=== PATIENT | female | born 1950 | race Caucasian/White ===

== ENCOUNTER 2016-12-23 14:10 | Inpatient (IN) | payer OTHER, MEDICARE ==
--- NOTE | 2017-02-21 09:16 | HP ---
DATE OF CLINIC: 02/12/2017 JENARO BOB : 1950 PLANNED PROCEDURE: Left Total Hip Arthroplasty DATE OF PROCEDURE: February 24, 2017 SURGEON: Estevan Gauthier M.D. PCP: Dr. Amaury Gutiérrez HISTORY OF PRESENT ILLNESS Jenaro Bob is a 66 year old female. * Medication list reviewed with patient allergy list reviewed with patient. * Tried NSAIDS * Has not tried Physical Therapy * Has not tried Injections Ms. Bob is in today pre-operatively for her upcoming left total hip arthroplasty with Dr. Gauthier on 02/24/17. Patient presents in good spirits and is ready to proceed. She denies recent illness, change in health, or prior surgical complications. Her recent consult follows: Ms. Bob is an established patient of the office. She is a pleasant 65-year-old female well known to us for a right total hip arthroplasty completed on August 01, 2014. We not seen the patient yet in postoperative recheck, but she states that she is doing very well with her progress with the right hip. She has no complaint of pain or instability. She is scheduled today for evaluation of her left hip. The patient noted that over the past three months she has had progressively more pain and discomfort in the groin that actually has some radiation to the posterior thigh, but also affects the lateral aspect of her left knee. She was concerned that this may be happening as a result of shifting in her vehicle. So she changed vehicles and had no change in her pain. The pain is primarily with exertive activity such as shifting as well as weight-bearing. Her job is sedentary but when she at start up from her desk, she will experience a similar kind of a pain, and she is now also having some night discomfort. The patient has had no evidence of this prior to this point in time, based on the prior radiographs she has had some moderate degenerative change, historically minimal back discomfort. In regard to the knee she has no complaints of weight bearing pain with the knee. She had not had any provocative incidents to strain her knee. She denies any mechanical symptoms or loss of motion. She is not had any swelling. The patient also denies any recent change in her baseline status of health or illness. CURRENT MEDICATION * HydroCHLOROthiazide 12.5 MG Capsule 1 once a day 0 days, 0 refills * Lisinopril 5 MG Tablet 1 once a day 0 days, 0 refills * TraMADol HCl 50 MG Tablet 1 po q 6 hours prn pain, 5 days, 0 refills PAST MEDICAL/SURGICAL HISTORY Reported: Medical: Hypertension. Surgical / Procedural: Replacement of a hip Right hip replacement 08/01/[address]David Gauthier and Breast surgery Reduction 2001. SOCIAL HISTORY Behavioral: Never smoked. Smoking status: Never smoker. 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 ALLERGIES * Molds FAMILY HISTORY Father at age 59 2 children living REVIEW OF SYSTEMS Systemic: No fever and no recent weight change. Head: No head symptoms. Cardiovascular: Cardiovascular symptoms HTN. Pulmonary: No pulmonary symptoms. Gastrointestinal: No gastrointestinal symptoms. Psychological: No psychological symptoms. Skin: No skin lesions and no rash. PHYSICAL FINDINGS * Vitals taken 02/12/2017 03:12 pm BP-Sitting L 147/91 mmHg 100 - 120/56 - 80 BP Cuff Size Regular Pulse Rate-Sitting 92 bpm 50 - 100 Temp-Oral 97.3 F 96 - 101 Height 64 in 59 - 68 Weight 219 lbs 96 - 178 Body Mass Index 37.6 kg/m2 Body Surface Area 2.03 m2 Pain Level 4 Ears, Nose, Throat: * ENT: normal. Lungs: * Clear to auscultation. Cardiovascular: Heart Rate and Rhythm: * Normal. Abdomen: * Normal. Neurological: Motor: * Dominant Hand = Left Hand. This is a well-developed, well-nourished obese 65-year-old female presenting to the office today in no acute distress. She is alert and oriented times four with a normal mood and affect. EXAM OF THE LOWER EXTREMITIES: The patient ambulates today with a cautious moderately antalgic gait favoring the left side. She has a mild Trendelenburg. She has good balance in stance. Examination of the left hip itself reveals the skin to be intact without wound, rash, lesion or discoloration. There is no evidence of swelling. The patient was non-tender about the pelvic girdle on palpation. A log roll with her supine did demonstrate groin pain. Active range of motion was as follows with her supine: Her hip flexion was to 90 degrees prior to be limited by pain, abduction to 45 degrees, both of these motions were improved passively, her passive limit in flexion was to 110 with significant groin pain, abduction to 50 degrees, internal rotation to neutral with significant groin pain, external rotation to 45, adducting across midline re-created groin pain. Passive SLR was to 75 degrees prior to hamstring tightness. Active SLR to 45 degrees with groin pain present. Hip strength was 5/5 in all planes. Active range of motion of the left knee was 0 to 125 without discomfort. The knee itself the skin revealed no wounds, rash, lesions or discoloration. No effusion was present. The cruciate and collateral ligamentous exam was intact. The patella was tracking well. There was no crepitation or apprehension sign. The knee strength was 5/5 and symmetric. There were no focal points of tenderness on palpation of the previous pain that she felt laterally with hip motion suggesting some referred pain. The thigh and calf were soft and non-tender; ankle motion was full with 5/5 strength. The distal motor, sensory and vascular function was intact with palpable dorsalis and posterior tibialis pulses. RADIOGRAPHS: An AP of the pelvis as well as AP and lateral of the left hip were available today for review. There are also four views of the left knee available from [facility] for review. The left knee films demonstrate no acute osseous abnormalities, minimal tri-compartmental degenerative change is seen in a symmetric fashion. The patella is lining up well. Hip films in the pelvis view there is first of all no acute demonstrated osseous abnormalities; single view of the pelvis suggests a right total hip arthroplasty in good position without evidence of loosening or excessive wear. AP and lateral of the left hip demonstrate moderately advanced degenerative change with some flattening of the femoral head as well as subchondral sclerosis and lateral spurring of the acetabulum as well as mild spurring of the femoral head. TESTS * Test: URINALYSIS Report Date: 02/12/2017 GLUCOSE NEGATIVE PH,URINE 7.0 SPEC. GRAVITY 1.010 KETONE NEGATIVE NITRITE NEGATIVE BLOOD NEGATIVE BILIRUBIN NEGATIVE APPEARANCE CLEAR PROTEIN NEGATIVE COLOR YELLOW LEUK ESTERASE NEGATIVE UROBILINOGEN NORMAL * Test: CBC WITH DIFF Report Date: 02/12/2017 WBC 7.1 10*3/mL BASOPHIL 0.3 % RBC 5.19 10*6/uL NEUTROPHILS 52.7 % MCH 28.3 pg MCHC 32.9 g/dL Low RDW 13.2 % MCV 86.1 fL PLATELET COUNT 239 10*3/mL IMM NEUT % 0.3 % IMM NEUT # 0.0 10*3/mL MONOCYTES 5.9 % EOSINOPHIL 1.7 % HCT 44.7 % HGB 14.7 g/L LYMPHOCYTE 39.1 % ANC 3.7 10*3/mL * Test: PROTHROMBIN TIME Report Date: 02/12/2017 PROTIME 9.5 s INR 0.90 * Test: PARTIAL THROMBOPLASTIN TIME Report Date: 02/12/2017 APTT 22.8 s Low * Test: COMPREHENSIVE METABOLIC PANEL Report Date: 02/12/2017 ALT/SGPT 16 U/L ALBUMIN 4.1 g/dL ALB/GLOB RATIO 1.9 BUN 15 mg/dL BUN/CREAT RATIO 19 CALCIUM 9.6 mg/dL GLUCOSE 145 mg/dL High CREATININE 0.8 mg/dL SODIUM 140 meq/L POTASSIUM 4.0 meq/L CHLORIDE 101 meq/L CARBON DIOXIDE 29 meq/L ANION GAP 14 meq/L TOT PROTEIN 6.3 g/dL Low GLOBULIN 2.2 g/dL Low BILI,TOTAL 0.4 mg/dL AST/SGOT 15 U/L ALK PHOSPHATASE 78 U/L GFR 72 ASSESSMENT * Localized primary osteoarthritis of the left hip advanced * Localized primary osteoarthritis of the left knee mild Intact right hip prosthesis. THERAPY * Patient fall risk screen negative. * Patient eligible for fall risk assessment. * Patient received fall risk assessment. COUNSELING/EDUCATION * Patient education about orthopedic activities PLAN * OTHER OxyCODONE HCl 5 MG TABS, 1-2 po q 4-6 hours for break thru pain if needed-TO BE USED FOR AFTER SURGERY, 5 days, 0 refills TraMADol HCl 50 MG TABS, 1 po q 6 hours prn pain-TO BE USED FOR AFTER SURGERY, 5 days, 0 refills * Total hip replacement -Left Discussed with patient in detail the limitations, expectations as well as risks and possible complications of surgery including, but not limited to wound problems or infection, neurovascular injury, continued hip pain or dysfunction, postop instability including the possibility of dislocation and/or postop leg length discrepancy, and the possibility of prosthetic wear or failure over time that may require additional operative or non-operative treatment. Patient also realizes the perioperative risks including risks associated with anesthesia and would like to proceed. A full PAR conference was held, questions and concerns addressed and informed consent was obtained. Patient will be sent from my office for completion of the preoperative workup. Patient will use enteric coated aspirin postoperatively for DVT prophylaxis. Patient would like to perform their postop PT at [facility] with left total hip arthroplasty protocol WBAT, posterior hip precautions. CARE TEAM Amaury Gutiérrez, DO Family Practice CC: Amaury Gutiérrez, DO Family Practice Fatemeh PT Eddie RS/sg
[2017-02-24] MEDS ORDERED: CELECOXIB 200 MG CAPSULE PO ONE (08:30)
[2017-02-24] MEDS ORDERED: BUPIVACAINE 0.25% (MDV) 20 ML in SODIUM CHLORIDE 0.9% FLUSH 20 ML IF PRN (08:30)
[2017-02-24] MEDS ORDERED: CEFAZOLIN SODIUM 2 GRAM PREMIX 100 ML IV PRN (08:30)
[2017-02-24] MEDS ORDERED: TRAMADOL HCL 50 MG TABLET PO ONE (08:30)
[2017-02-24] MEDS ORDERED: TRANEXAMIC ACID 1,000 MG in SODIUM CHLORIDE 0.9% 100 ML IV PRN (08:30)
[2017-02-24] MEDS ORDERED: GABAPENTIN 600 MG TABLET PO ONE (08:30)
[2017-02-24] MEDS ORDERED: POLYMYXIN B SULFATE 500,000 UNITS, BACITRACIN 25,000 UNITS in SODIUM CHLORIDE 3 L IRRIG... IR PRN (08:30)
[2017-02-24] MEDS ORDERED: ONDANSETRON 4 MG/2ML 2 ML VIAL IV ONE (08:30)
[2017-02-24] MEDS ORDERED: BUPIVACAINE 0.25% (MDV) 24 ML, MORPHINE SULFATE 8 MG, EPINEPHRINE 0.3 MG in SODIUM CHLO... IF PRN (08:30)
[2017-02-24] MEDS ORDERED: FAMOTIDINE 20 MG TABLET PO ONE (08:30)
[2017-02-24] MEDS ORDERED: OXYCODONE HCL 10 MG TAB.SR PO ONE ×2 (08:30→09:14)
[2017-02-24] MEDS ORDERED: CLONIDINE HCL 0.1 MG/24 HR (7 DAY PATCH) TD SCH (08:30)
[2017-02-24] MEDS ORDERED: LACTATED RINGERS 1,000 ML ONE ×3 (09:03→14:24)
[2017-02-24] MEDS ORDERED: IV START KIT ONE ×2 (09:04→09:14)
[2017-02-24] MEDS ORDERED: ONDANSETRON 4 MG/2ML 2 ML VIAL ONE (09:14)
[2017-02-24] MEDS ORDERED: TRAMADOL HCL 50 MG TABLET ONE (09:14)
[2017-02-24] MEDS ORDERED: GABAPENTIN 600 MG TABLET ONE (09:15)
[2017-02-24] MEDS ORDERED: CELECOXIB 200 MG CAPSULE ONE (09:15)
[2017-02-24] MEDS ORDERED: CLONIDINE HCL 0.1 MG/24 HR (7 DAY PATCH) TD ONE (09:15)
[2017-02-24] MEDS ORDERED: FAMOTIDINE 20 MG TABLET ONE (09:15)
[2017-02-24] MEDS ORDERED: MIDAZOLAM HCL 5 MG/5 ML VIAL ONE (10:23)
[2017-02-24] MEDS ORDERED: FENTANYL 100 MCG/2 ML VIAL ONE (10:23)
[2017-02-24] MEDS ORDERED: SPINAL PROCEDURAL TRAY 1 EACH ONE (10:55)
[2017-02-24] MEDS ORDERED: BUPIVACAINE 0.75% SPINAL AMPUL 2 ML ONE (10:55)
[2017-02-24] MEDS ORDERED: PROPOFOL 40 ML IV ONE (11:46)
[2017-02-24] MEDS ORDERED: PROPOFOL 20 ML IV ONE ×2 (12:16)
[2017-02-24] MEDS ORDERED: PROMETHAZINE HCL 25 MG/ML VIAL IM PRN (13:39)
[2017-02-24] MEDS ORDERED: NALOXONE HCL 0.4 MG/ML VIAL IV PRN (13:39)
[2017-02-24] MEDS ORDERED: ATROPINE SULFATE 0.4 MG/1 ML VIAL IV PRN (13:39)
[2017-02-24] MEDS ORDERED: ONDANSETRON 4 MG/2ML 2 ML VIAL IV PRN ×2 (13:39→14:42)
[2017-02-24] MEDS: FENTANYL 100 MCG/2 ML VIAL IV PRN ×2 (13:47→13:55)
--- NOTE | 2017-02-24 13:51 | PCMBPN ---
Brief Post Op Note: Date of Procedure: 02/24/17 Preoperative Diagnosis: DJD left hip Postoperative Diagnosis: same Procedure: left KATTY Surgeon: Estevan Gauthier MD Assist: Talon (NAHUN) Anesthesia: spinal (Bahrke) Condition: stable to PAR Complications: none IV Fluids: 1000 mLs of LR Urine Output: 50 mLs Estimated Blood Loss: 100mLs Tourniquet Time: [N/A] Specimens: [N/A] Implants: Trilock Drains: [N/A]
[2017-02-24] MEDS ORDERED: HYDROMORPHONE HCL 1 MG/ML SYRINGE ONE ×2 (14:08→14:23)
[2017-02-24] MEDS: HYDROMORPHONE HCL 1 MG/ML SYRINGE IV PRN ×3 (14:09→14:27)
[2017-02-24] MEDS ORDERED: CALCIUM CARBONATE 500 MG TAB.CHEW PO PRN (14:42)
[2017-02-24] MEDS ORDERED: TEMAZEPAM 15 MG CAPSULE PO PRN (14:42)
[2017-02-24] MEDS ORDERED: HYDROMORPHONE HCL 0.5 MG/0.5 ML SYRINGE IV PRN (14:42)
[2017-02-24 15:22] VITALS: BMI 38.7
--- NOTE | 2017-02-24 15:37 | RAD ---
PELVIS HISTORY: Postop left KATTY COMPARISONS: Left hip series 09/12/2016 FINDINGS: Single view of the pelvis demonstrates postsurgical change from left KATTY. 2 screws transfix the acetabular component. Hardware is intact without signs of failure or loosening given the single projection. No fracture or dislocation. Subcutaneous gas is noted compatible with the patient's known postoperative state. Right total hip arthroplasty hardware is unchanged from prior study. IMPRESSION: Satisfactory postoperative exam.
[2017-02-24] MEDS ORDERED: HYDROCHLOROTHIAZIDE 12.5 MG CAP PO SCH (15:43)
[2017-02-24] MEDS ORDERED: LISINOPRIL 5 MG TABLET PO SCH (15:44)
[2017-02-24] MEDS: LACTATED RINGERS 1,000 ML IV SCH (17:35)
[2017-02-24] MEDS ORDERED: PUMP TUBING ONE (17:55)
[2017-02-24] MEDS: D5 1/2NS with 20 mEq KCL 1,000 ML IV SCH (18:01)
[2017-02-24] MEDS: ACETAMINOPHEN 500 MG TABLET PO SCH (18:02)
[2017-02-24] MEDS: KETOROLAC TROMETHAMINE 30 MG/ML 1 ML VIAL IV PRN (20:03)
[2017-02-24] MEDS: DOCUSATE SODIUM 100 MG CAPSULE PO SCH (20:04)
[2017-02-24] MEDS: CEFAZOLIN SODIUM 1 GRAM PREMIX 1 G in Premix (D5W) 50 ml 1 EACH IV SCH (20:04)
[2017-02-24] MEDS ORDERED: TRAMADOL HCL 50 MG TABLET PO PRN (21:00)
[2017-02-24] MEDS: ASCORBIC ACID 500 MG TABLET PO SCH (22:42)
[2017-02-25] MEDS: LACTATED RINGERS 1,000 ML IV SCH (01:01)
[2017-02-25] MEDS: ACETAMINOPHEN 500 MG TABLET PO SCH ×4 (01:02→18:44)
[2017-02-25] MEDS: KETOROLAC TROMETHAMINE 30 MG/ML 1 ML VIAL IV PRN ×2 (01:53→09:28)
[2017-02-25] MEDS: D5 1/2NS with 20 mEq KCL 1,000 ML IV SCH ×2 (01:53→09:13)
[2017-02-25] MEDS: CEFAZOLIN SODIUM 1 GRAM PREMIX 1 G in Premix (D5W) 50 ml 1 EACH IV SCH (04:32)
[2017-02-25 06:05] LABS: HEMATOCRIT 39.2 % (37.0-47.0); HEMOGLOBIN 12.5 gm/l (12.0-16.0); MEAN CELL VOLUME 88.5 fl (81.0-99.0); MEAN CORPUSCULAR HEMOGLOBIN 28.2 pg (27.0-31.0); MEAN CORPUSCULAR HGB CONC 31.9 g/dl (33.0-37.0); RED CELL DISTRIBUTION WIDTH 13.3 % (11.5-14.5)
[2017-02-25 06:30] LABS: CALCIUM 8.3 mg/dL (8.6-10.3)
--- NOTE | 2017-02-25 08:22 | CONS ---
Jenaro Ibarra [id number] DATE OF ADMISSION: 02/24/2017 REQUESTING PHYSICIAN: Dr. Estevan Gauthier. PRIMARY CARE PHYSICIAN: Dr. Amaury Hugo. CHIEF COMPLAINT: Assist with medical management in a patient with status post left total hip arthroplasty. HISTORY OF PRESENT ILLNESS: The patient is a 66-year-old female who is postoperative day zero status post left total hip arthroplasty 02/24/2017. She reports doing well. No dyspnea. No chest pain. She did have some nausea and did have vomiting earlier today, but is now feeling fine with no complaints. She notes that she did not have any nausea or vomiting the previous time, but attributes this to eating some fruit this time. Her pain is otherwise well controlled and she was able to do some bed exercises with physical therapy earlier. PAST MEDICAL HISTORY: Remarkable for borderline hypertension. She has continued to take hydrochlorothiazide and lisinopril although, states her doctors offered the chance to stop it, they elected to continue due to renal protective effects. She has a history of hyperglycemia, but is not on any medicines just diet control. She is left handed. PAST SURGICAL HISTORY: Remarkable for reduction mammoplasty 2001, hysterectomy, deviated septoplasty, and a right hip replacement 08/01/2014 which she was very pleased with. ALLERGIES: LISTED MOLDS. MEDICATIONS: 1. Hydrochlorothiazide 12.5 mg daily. 2. Lisinopril 5 mg daily. 3. Tramadol 50 mg by mouth every 6 hours as needed. 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 She is . 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 No smoking. Reports alcohol at 2 drinks per year. She has two kids and her has two kids from a previous relationships. She has neighborhood cats and her house was recently adopted by a cat. FAMILY HISTORY: Father at 59 killed in a train accident. Mom is 89 and is generally doing well. REVIEW OF SYSTEMS: Eyes, ears, nose, and throat have been okay. Mouth is somewhat dry. Nose is chronically clogged up on the right. Breathing is fine. No heart complaints. No stomach complaints. No nausea at this time. No arm complaints. No urinary complaints. Pain is relatively well controlled. Skin has been okay. She has not stood up yet, but did do the bed exercises before. PHYSICAL EXAMINATION: GENERAL: Pleasant nontoxic female who is sleeping, but awakes and responds appropriately. VITAL SIGNS: Pulse 69, blood pressure 133/74, 99% saturation on 2 liters. HEENT: Head is normocephalic, atraumatic. Eyes are unremarkable. Ears are normal bilaterally. Minimal injection on the left tympanic membrane. Nose is normal. The patient does report some decreased air flow on the right nostril chronically. Oropharynx is grossly unremarkable. Dentition is good. NECK: Supple without masses or adenopathy. LUNGS: Clear to auscultation bilaterally. HEART: Slightly distant, but regular rate and rhythm. ABDOMEN: Soft, nontender, nondistended. Bowel sounds are normal. EXTREMITIES: Arms are unremarkable. Pulses are good bilaterally. Perfusion is good. Left hip with dressings which is clean, dry, and intact. Lower extremities with compression devices and SAMAN hose bilaterally. She is able to wiggle the toes on both feet and reports sensation is good. She is alert, oriented, and appropriate. GENITOURINARY: Deferred. NEUROLOGICAL: No neurologic deficits noted. PREOPERATIVE LABS: Showed a white count of 7.1, hemoglobin 14.7, platelets 239. Sodium 140, potassium 4.0, chloride 101, CO2 29, BUN 15, creatinine 0.8, glucose 45, calcium 7.6. LFT's are normal. Urinalysis normal. Postoperative left total hip arthroplasty was satisfactory postoperative appearance. DIAGNOSTICS: EKG normal sinus rhythm. ASSESSMENT AND PLAN: 1. Postoperative day zero status post left total hip arthroplasty. Appreciate orthopedic, therapeutic, and nursing care. She appears to be feeling very well after having nausea and vomiting earlier. 2. History of borderline hypertension. Anticipate just holding her medicines while she is here. 3. History of hyperglycemia. Anticipate capillary blood glucoses, but last time did not require any insulin supplementation. 4. Venous thrombosis prophylaxis. Anticipate use of aspirin. Thank you for this consultation. We will follow with you. JOB: [id number] CC: Dr. Amaury Gauthier
[2017-02-25] MEDS ORDERED: REMOVE PATCH 1 EACH UNIT TD SCH (08:30)
[2017-02-25] MEDS ORDERED: REMOVE PATCH 1 EACH UNIT TD ONE (09:18)
[2017-02-25] MEDS: CELECOXIB 200 MG CAPSULE PO SCH (09:25)
[2017-02-25] MEDS: DOCUSATE SODIUM 100 MG CAPSULE PO SCH ×2 (09:25→21:23)
[2017-02-25] MEDS: MULTIVITAMINS 1 TAB TABLET PO SCH (09:26)
[2017-02-25] MEDS: ASCORBIC ACID 500 MG TABLET PO SCH ×2 (09:26→21:23)
[2017-02-25] MEDS: ASPIRIN (ENTERIC COATED) 325 MG TABLET.EC PO SCH (09:26)
[2017-02-25] MEDS: OXYCODONE HCL 5 MG TABLET PO PRN ×4 (09:26→21:23)
--- NOTE | 2017-02-25 10:51 | PDOC43 ---
- Subjective Findings: Pt seen this morning up and ready to get out of bed. Pain is under control. She did have n/v last evening but is hungry this am and is ready t eat. Subjective: Reports Pain Tolerable, Reports Nausea, Denies Chest Pain, Denies Shortness of Breath, Denies Vomiting, Denies Fever - Objective Vital Signs Temperature 97.1 F 02/25/17 05:25 Pulse Rate 82 02/25/17 05:25 Respiratory Rate 18 02/25/17 05:25 Blood Pressure 125/67 02/25/17 05:25 O2 Saturation by Pulse Oximetry 100 02/25/17 05:25 Oxygen Delivery Method Nasal Cannula Oxygen Flow Rate 1.5 Laboratory 02/25/17 05:30 02/25/17 05:30 02/25/17 02/24/17 05:30 23:31 MCHC 31.9 L POC Capillary Glucose 186 H Calcium 8.3 L Active Medication Orders Category Date Time Status Acetaminophen [Tylenol] Med 02/24/17 18:00 Active 1,000 mg PO Q6H Ascorbic Acid [Vitamin C] Med 02/24/17 21:00 Active 500 mg PO BID Aspirin (Enteric Coated) [Ecotrin] Med 02/25/17 09:00 Active 325 mg PO DAILY Atropine Sulfate Med 02/24/17 13:39 Active 0.2 mg IV X1 PRN Bisacodyl [Dulcolax] Med 02/27/17 13:40 Active 10 mg TN DAILY PRN Calcium Carbonate [Tums] Med 02/24/17 14:42 Active 1,000 - 2,000 mg PO Q2H PRN Celecoxib [Celebrex] Med 02/25/17 09:00 Active 200 mg PO DAILY D5 1/2NS with 20 mEq KCL [D51/2NS with 20 mEq KCL] 1, Med 02/24/17 14:42 Active 000 ml IV 125 mls/hr Docusate Sodium [Colace] Med 02/24/17 21:00 Active 100 mg PO BID Fentanyl Med 02/24/17 13:39 Active 50 mcg IV Q5M PRN Hydrochlorothiazide Med 02/24/17 15:43 Hold 12.5 mg PO DAILY Hydromorphone HCl [Dilaudid] Med 02/24/17 14:42 Active 0.5 mg IV Q1H PRN Hydromorphone HCl [Dilaudid] Med 02/24/17 13:39 Active 0.5 mg IV Q5M PRN Ketorolac Tromethamine [Toradol] Med 02/24/17 14:42 Active 30 mg IV Q6H PRN Lisinopril [Prinivil] Med 02/24/17 15:44 Hold 5 mg PO DAILY Magnesium Hydroxide [Milk of Magnesia] Med 02/25/17 13:40 Active 30 ml PO DAILY PRN Multivitamins [One-A-Day] Med 02/25/17 09:00 Active 1 tab PO DAILY Naloxone HCl [Narcan] Med 02/24/17 13:39 Active 0.2 mg IV X1 PRN Ondansetron 4 mg/2ml Vial [Zofran] Med 02/24/17 14:42 Active 4 - 6 mg IV Q6H PRN Ondansetron 4 mg/2ml Vial [Zofran] Med 02/24/17 13:39 Active 4 mg IV X1 PRN Oxycodone HCl [Roxicodone] Med 02/24/17 14:42 Active 5 - 10 mg PO Q4H PRN Promethazine HCl [Phenergan] Med 02/24/17 13:39 Active 12.5 - 25 mg IM X1 PRN Sodium Chloride 0.9% Flush [Normal Saline 10ml Flush] Med 02/24/17 14:42 Active 10 - 50 ml IV PRN PRN Sodium Chloride 0.9% Flush [Normal Saline 10ml Flush] Med 02/25/17 09:00 Active 10 ml IV Q8HR Temazepam [Restoril] Med 02/24/17 14:42 Active 15 mg PO BEDTIME PRN Tramadol HCl [Ultram] Med 02/24/17 21:00 Active 50 mg PO Q6H PRN Intake and Output 02/23/17 02/24/17 02/25/17 23:59 23:59 23:59 Intake Total 2080 1355 Output Total 750 1800 Balance 1330 -445 General: Afebrile HEENT: Atraumatic Lungs: Normal Air Movement Abdomen: Non-Distended Skin: Normal Color Neurological: Alert Psych/Mental Status: Normal Affect - Left Lower Extremity Motor: Extensor Hallucis Longus: 5/5, Tibialis Anterior: 5/5, Gastrocnemius: 5/5 , Peroneals: 5/5, Quadriceps: 3/5 Gross Sensation to Light Touch: Present: Deep Peroneal Nerve, Superficial Peroneal Nerve Capillary Refill: < 3 Seconds Motion: Calf soft NT Gentle Rom knee and hip without pain Min assist with SLR - Problems (1) Status post left hip replacement Status: AcuteAssessment/Plan: Pod #1 1. Physical Therapy: mobilize with PT/OT. Encouraged bed exercises 2. Pain Control:Per protocol 3. DVT Prophylaxis: ASA, foot pumps and mobility 4. Disposition:Doing fine at this point 5. Medical Issues:Management per hospitalist appreciate the care and consult.
--- NOTE | 2017-02-25 11:56 | PDOC43 ---
- Subjective Chief Complaint: s/p L KATTY Patient reports feeling well, breathing good, stomach good, ate fine, worked with PT, pain control good. No c/o this am. - Objective Vital Signs Temperature 97.1 F 02/25/17 05:25 Pulse Rate 82 02/25/17 05:25 Respiratory Rate 18 02/25/17 09:00 Blood Pressure 125/67 02/25/17 05:25 O2 Saturation by Pulse Oximetry 100 02/25/17 05:25 Oxygen Delivery Method Nasal Cannula Oxygen Flow Rate 1.5 Intake and Output 02/23/17 02/24/17 02/25/17 23:59 23:59 23:59 Intake Total 2080 1355 Output Total 750 2300 Balance 1330 -945 General: Alert, Cooperative, No Acute Distress HEENT: Atraumatic Lungs: Clear to Auscultation Bilaterally Cardiovascular: Regular Rate and Rhythm Abdomen: Soft, Normal Bowel Sounds, Non-Distended Extremities: No Edema Skin: Normal Color Neurological: Normal Speech Psych/Mental Status: Normal Affect (appears to be feeling quite good.) Laboratory 02/25/17 05:30 02/25/17 05:30 02/25/17 02/24/17 05:30 23:31 MCHC 31.9 L POC Capillary Glucose 186 H Calcium 8.3 L Current Medications: Current meds reviewed in EMR. Active Medications Acetaminophen (Tylenol) 1,000 mg PO Q6H [facility] Last Admin: 02/25/17 06:10 Dose: Not Given Ascorbic Acid (Vitamin C) 500 mg PO BID [facility] Last Admin: 02/25/17 09:26 Dose: 500 mg Aspirin (Ecotrin) 325 mg PO DAILY [facility] Last Admin: 02/25/17 09:26 Dose: 325 mg Atropine Sulfate (Atropine Sulfate) 0.2 mg IV X1 PRN PRN Reason: HR <50/minute and unstable BP Bisacodyl (Dulcolax) 10 mg UT DAILY PRN PRN Reason: If no BM by POD#3 Calcium Carbonate/Glycine (Tums) 1,000 - 2,000 mg PO Q2H PRN PRN Reason: Heartburn/Indigestion Celecoxib (Celebrex) 200 mg PO DAILY [facility] Last Admin: 02/25/17 09:25 Dose: 200 mg Docusate Sodium (Colace) 100 mg PO BID [facility] Last Admin: 02/25/17 09:25 Dose: 100 mg Fentanyl Citrate (Fentanyl) 50 mcg IV Q5M PRN PRN Reason: Pain Last Admin: 02/24/17 13:55 Dose: 50 mcg Hydrochlorothiazide (Hydrochlorothiazide) 12.5 mg PO DAILY [facility] Last Admin: 02/24/17 17:34 Dose: Not Given Hydromorphone HCl (Dilaudid) 0.5 mg IV Q5M PRN PRN Reason: Pain Last Admin: 02/24/17 14:27 Dose: 0.5 mg Hydromorphone HCl (Dilaudid) 0.5 mg IV Q1H PRN PRN Reason: Severe/Breakthrough Pain Ketorolac Tromethamine (Toradol) 30 mg IV Q6H PRN PRN Reason: Pain (Moderate/Severe) Stop: 02/25/17 13:40 Last Admin: 02/25/17 09:28 Dose: 30 mg Lisinopril (Prinivil) 5 mg PO DAILY [facility] Last Admin: 02/24/17 17:34 Dose: Not Given Magnesium Hydroxide (Milk Of Magnesia) 30 ml PO DAILY PRN PRN Reason: If no BM by evening of POD#1 Multivitamins (One-A-Day) 1 tab PO DAILY [facility] Last Admin: 02/25/17 09:26 Dose: 1 tab Naloxone HCl (Narcan) 0.2 mg IV X1 PRN PRN Reason: Respiratory Rate <8/minute Ondansetron HCl (Zofran) 4 mg IV X1 PRN PRN Reason: Nausea/Vomiting Last Admin: 02/24/17 13:52 Dose: 4 mg Ondansetron HCl (Zofran) 4 - 6 mg IV Q6H PRN PRN Reason: Nausea/Vomiting Last Admin: 02/24/17 15:33 Dose: 4 mg Oxycodone HCl (Roxicodone) 5 - 10 mg PO Q4H PRN PRN Reason: Pain (Moderate) Last Admin: 02/25/17 09:26 Dose: 5 mg Promethazine HCl (Phenergan) 12.5 - 25 mg IM X1 PRN PRN Reason: Nausea/Vomiting Sodium Chloride (Normal Saline 10ml Flush) 10 - 50 ml IV PRN PRN PRN Reason: IV Flush Sodium Chloride (Normal Saline 10ml Flush) 10 ml IV Q8HR [facility] Last Admin: 02/25/17 09:27 Dose: 10 ml Temazepam (Restoril) 15 mg PO BEDTIME PRN PRN Reason: Insomnia Tramadol HCl (Ultram) 50 mg PO Q6H PRN PRN Reason: Pain (Mild) - Problems: Assessment/Plan (1) Status post left hip replacement Status: AcuteAssessment/Plan: Appreciate specialty care. Pt reports doing well. (2) Benign hypertension Status: ChronicAssessment/Plan: BP doing well, holding meds (3) History of elevated glucose Status: ChronicAssessment/Plan: Pt interested in handout about diabetes. Will print and share. She would consider checking A1c, starting metformin. VTE Prophylaxis: ASA, mechanical
[2017-02-25] MEDS ORDERED: MAGNESIUM HYDROXIDE 30 ML UDCUP PO PRN (13:40)
[2017-02-25 18:49] LABS: A1C-GLYCOHEMOGLOBIN 0.6 g/dl; HEMOGLOBIN-GLYCO 12.6 g/dl
[2017-02-26] MEDS: ACETAMINOPHEN 500 MG TABLET PO SCH ×2 (00:17→06:34)
[2017-02-26] MEDS: OXYCODONE HCL 5 MG TABLET PO PRN ×2 (04:27→10:27)
[2017-02-26 06:54] LABS: HEMATOCRIT 34.8 % (37.0-47.0); HEMOGLOBIN 11.4 gm/l (12.0-16.0)
--- NOTE | 2017-02-26 08:03 | PDOC43 ---
- Subjective Findings: Pt seen this morning awake and sitting in the recliner. Pain is controlled and she states will be ready to go home today. Subjective: Reports Flatus, Reports Pain Tolerable, Denies Chest Pain, Denies Shortness of Breath, Denies Nausea, Denies Vomiting, Denies Fever - Objective Vital Signs Temperature 97.3 F 02/26/17 07:17 Pulse Rate 89 02/26/17 07:17 Respiratory Rate 17 02/26/17 07:17 Blood Pressure 131/73 02/26/17 07:17 O2 Saturation by Pulse Oximetry 97 02/26/17 07:17 Oxygen Delivery Method Room Air Oxygen Flow Rate 0 Laboratory 02/26/17 06:20 02/25/17 05:30 02/26/17 02/25/17 02/25/17 07:26 21:34 17:30 POC Capillary Glucose 132 H 173 H 185 H Hemoglobin A1c 02/25/17 02/25/17 11:45 05:30 POC Capillary Glucose 141 H Hemoglobin A1c 6.5 H Active Medication Orders Category Date Time Status Acetaminophen [Tylenol] Med 02/24/17 18:00 Active 1,000 mg PO Q6H Ascorbic Acid [Vitamin C] Med 02/24/17 21:00 Active 500 mg PO BID Aspirin (Enteric Coated) [Ecotrin] Med 02/25/17 09:00 Active 325 mg PO DAILY Atropine Sulfate Med 02/24/17 13:39 Active 0.2 mg IV X1 PRN Bisacodyl [Dulcolax] Med 02/27/17 13:40 Active 10 mg ME DAILY PRN Calcium Carbonate [Tums] Med 02/24/17 14:42 Active 1,000 - 2,000 mg PO Q2H PRN Celecoxib [Celebrex] Med 02/25/17 09:00 Active 200 mg PO DAILY Docusate Sodium [Colace] Med 02/24/17 21:00 Active 100 mg PO BID Fentanyl Med 02/24/17 13:39 Active 50 mcg IV Q5M PRN Hydrochlorothiazide Med 02/24/17 15:43 Hold 12.5 mg PO DAILY Hydromorphone HCl [Dilaudid] Med 02/24/17 14:42 Active 0.5 mg IV Q1H PRN Hydromorphone HCl [Dilaudid] Med 02/24/17 13:39 Active 0.5 mg IV Q5M PRN Lisinopril [Prinivil] Med 02/24/17 15:44 Hold 5 mg PO DAILY Magnesium Hydroxide [Milk of Magnesia] Med 02/25/17 13:40 Active 30 ml PO DAILY PRN Multivitamins [One-A-Day] Med 02/25/17 09:00 Active 1 tab PO DAILY Naloxone HCl [Narcan] Med 02/24/17 13:39 Active 0.2 mg IV X1 PRN Ondansetron 4 mg/2ml Vial [Zofran] Med 02/24/17 14:42 Active 4 - 6 mg IV Q6H PRN Ondansetron 4 mg/2ml Vial [Zofran] Med 02/24/17 13:39 Active 4 mg IV X1 PRN Oxycodone HCl [Roxicodone] Med 02/24/17 14:42 Active 5 - 10 mg PO Q4H PRN Promethazine HCl [Phenergan] Med 02/24/17 13:39 Active 12.5 - 25 mg IM X1 PRN Sodium Chloride 0.9% Flush [Normal Saline 10ml Flush] Med 02/24/17 14:42 Active 10 - 50 ml IV PRN PRN Sodium Chloride 0.9% Flush [Normal Saline 10ml Flush] Med 02/25/17 09:00 Active 10 ml IV Q8HR Temazepam [Restoril] Med 02/24/17 14:42 Active 15 mg PO BEDTIME PRN Tramadol HCl [Ultram] Med 02/24/17 21:00 Active 50 mg PO Q6H PRN Intake and Output 02/24/17 02/25/17 02/26/17 23:59 23:59 23:59 Intake Total 2080 3205 740 Output Total 750 2850 1100 Balance 1330 355 -360 General: Afebrile HEENT: Atraumatic Lungs: Normal Air Movement Abdomen: Non-Distended Skin: Normal Color Neurological: Alert, Oriented x 4 Psych/Mental Status: Normal Affect - Left Lower Extremity Incision: Well Approximated, No Drainage, No Erythema Motor: Extensor Hallucis Longus: 5/5, Tibialis Anterior: 5/5, Gastrocnemius: 5/5 , Peroneals: 5/5, Quadriceps: 3/5 Gross Sensation to Light Touch: Present: Deep Peroneal Nerve, Superficial Peroneal Nerve Capillary Refill: < 3 Seconds Motion: Calf soft NT Pt able to get out of chair and stand to remove dressing. Knee and hip Rom with out significant pain - Problems (1) Status post left hip replacement Status: AcuteAssessment/Plan: Pod #2 1. Physical Therapy: mobilize with PT/OT. Encouraged bed exercises 2. Pain Control:Per protocol 3. DVT Prophylaxis: ASA, foot pumps and mobility 4. Disposition:Doing well. Will D/C after am PT if meets criteria. 5. Medical Issues:Management per hospitalist appreciate the care and consult.
[2017-02-26] MEDS: DOCUSATE SODIUM 100 MG CAPSULE PO SCH (08:52)
[2017-02-26] MEDS: ASPIRIN (ENTERIC COATED) 325 MG TABLET.EC PO SCH (08:52)
[2017-02-26] MEDS: MULTIVITAMINS 1 TAB TABLET PO SCH (08:52)
[2017-02-26] MEDS: ASCORBIC ACID 500 MG TABLET PO SCH (08:52)
[2017-02-26] MEDS: CELECOXIB 200 MG CAPSULE PO SCH (08:53)
[2017-02-26 12:17] VITALS: BP 128/72
[2017-02-27] MEDS ORDERED: BISACODYL 10 MG SUP PR PRN (13:40)
--- NOTE | 2017-03-03 09:32 | OP ---
MIKAELA BOB [id number] : 1950 DATE OF SURGERY: February 24, 2017 PREOPERATIVE DIAGNOSIS: Degenerative joint disease left hip POSTOPERATIVE DIAGNOSIS: Same PROCEDURE: Left Total Hip Arthroplasty COMPONENTS: Tri-Lock size 4 standard offset press-fit femoral stem with a 36mm +1.5 Delta ceramic femoral head, [place] 54mm press-fit acetabular shell with 2 appropriate length 6.5 cancellous screws and a neutral cross-linked polyethylene liner. SURGEON: Disha ASSIST: Talon MA) ANESTHESIA: Spinal per Bahrke EBL: 100 cc URINE OUTPUT: 50 cc IVF REPLACEMENT: Per anesthesia, 1 liter crystalloid DRAINS: None COMPLICATIONS: None HISTORY: Briefly, patient is a 66-year-old female with clinical and radiographic evidence most consistent with degenerative joint disease of their left hip. They have failed traditional nonoperative measures and at this point desire elective surgical management. For additional details, refer to previously dictated Preoperative History and Physical Exam. A full PAR conference was held, questions and concerns were addressed, and informed consent was obtained. FINDINGS: Advanced degenerative changes, significant periarticular osteopenia on the acetabular side with some bony deficit posterior-inferior and anterior-superior. Calcified labrum. PROCEDURE: The patient was taken to the operating room and after previously described anesthesia was placed in the lateral decubitus position on the operating room table and held with the peg board positioner. Russ prominences were well padded and an axillary roll was placed. The left hip girdle and lower extremity were then prepped and draped out in the usual sterile fashion. Preoperative antibiotics were given empirically. Intraoperative DVT prophylaxis consisted of bilateral mechanical foot pumps. Personal filtration suits were used as was a closed room environment. An oblique ten centimeter incision was made using the minimally invasive guide posterior and extending slightly proximal to the greater trochanter. We dissected through subcutaneous tissue down to the gluteus fascia. Electrocautery was used at this point and throughout the duration of the case to establish and maintain hemostasis. The gluteus fascia was incised in line with the incision and the muscle fibers split to expose the underlying bursal tissue. Tranexamic acid was infiltrated over 10 minutes prior to incision, 1 gram dose per protocol. A similar 2nd dose was given at initiation of closure. A deep self retaining field retractor was placed. The short external rotators were identified, the piriformis was tagged and reflected with the underlying capsule which was reflected in a U fashion off the femoral neck and tagged as well for later repair. Release of the capsule allowed for dislocation of the hip and the femoral head was brought up into the operative field. A femoral neck cut was made proximal to the lesser trochanter as per our preoperative templating. We then translated the femur anteriorly exposing the acetabulum. The remaining labrum was excised circumferentially. Osteophytes were debrided under direct visualization. We reamed to the true acetabular floor and then incrementally up to a 53 as per our preoperative plan at which point we noted circumferential bleeding cancellous bone. This was trialed at approximately 45 degrees of abduction and 20 degrees of anteversion with good fit and stability. We then impacted the true acetabular component which was seated completely. I did augment these with 2 superior 6.5 appropriate length cancellous screws with good purchase. An apical hole cover was placed and we impacted the neutral crosslinked polyethylene liner. Attention was then directed back to the femur. The remaining soft tissue was cleared from the piriformis fossa and we use a rongeur and box osteotome to enter the proximal femoral canal followed by the canal seeker and then the broach only system up to a size 3 matching the patient's [place] anteversion with good proximal fill and rotational stability. This was trialed with a standard offset neck with a +1.5 head. The hip was then reduced with good stability to 70 degrees of internal rotation in 90 degrees of flexion and full extension with no instability on external rotation. There was good soft tissue balance and approximately equal leg lengths. Satisfied, trial components were removed and we impacted the true femoral stem. The trunnion was then cleaned and dried and the femoral head was impacted. The hip was then reduced with stability as previously discussed. Satisfied, we turned our attention to closure. The wound was copiously irrigated with antibiotic pulsatile lavage. We then advanced the capsule and piriformis to the gluteus medius insertion. The gluteus fascia was closed with a running number two PDO StratoFix suture. 1st periarticular injection was given at this point per protocol into the capsule, synovium, gluteus and external rotators. The subcutaneous tissue was closed with interrupted 2-0 and 3-0 Vicryl and the skin was closed with a running 4-0 Monocryl stitch with Indermil and Steri-Strips. The 2nd periarticular injection was done at this point per protocol into the subcutaneous tissue superiorly and anteriorly to the incision. A sterile hip dressing was then applied, the patient was returned to the supine position, transferred to their hospital bed, and sent to the postoperative recovery room in stable condition. They tolerated the procedure well. Sponge, instrument, and needle count were correct. TRACY/mrw CC: Amaury Chen PT Eddie
--- NOTE | 2017-03-04 09:52 | DS ---
Jenaro BOB [id number] : 1950 DATE OF ADMISSION: February 24, 2017 DATE OF DISCHARGE: February 26, 2017 DISCHARGE DIAGNOSES: Left hip osteoarthritis. HOSPITAL PROCEDURES: Left hip arthroplasty SURGEON: Estevan Gauthier M.D. BRIEF HISTORY: Patient is a sure old female with clinical and radiographic evidence of advanced DJD of their left hip. For the full history please see the chart note. BRIEF HOSPITAL COURSE: Patient was admitted on, February 24, 2017 Dr. Estevan Gauthier performed a left total hip arthroplasty. Patient was moved to the recovery room in stable condition. They were given 4 doses of antibiotic for empiric coverage. DVT prophylaxis consisted of enteric-coated aspirin 325 mg. PT was instituted postop day 0 with left total hip arthroplasty protocol, weightbearing as tolerated. Their incision site remained benign, their vital signs remained stable and they remained neurally and vascularly intact through the duration of the stay. They were discharged home postop day 2 to continue outpatient PT at [facility] in [place], [place] with left total hip arthroplasty protocol, weightbearing as tolerated keeping total hip precautions in mind. The patient was seen and senior professional services consultant by Dr. Tyrell Cat III for management of comorbidities. DISCHARGE INSTRUCTIONS: 1. Keep the wound site clean and dry, change dressing daily or as needed. 2. Continue the use of SAMAN hose bilaterally. 3. Ice pack over the wound site prn. 4. Continue total hip precautions. 5. Outpatient PT at [facility] in [place], [place] with left total hip arthroplasty protocol, weightbearing as tolerated. MEDICATIONS: 1. Patient is to resume normal preop medications. 2. Anti-coagulation will be with enteric-coated aspirin, 325mg one by mouth every day for 6 weeks. 3. Pain management will be with Oxycodone, 5mg 1-2 every 4 hours prn for breakthrough pain, Celebrex 200 mg one by mouth every day for two weeks. 4. Patient was also advised on utilization of a multi-vitamin with mineral daily as well as Vitamin C, 500mg, daily for 1 month. 5. Patient encouraged to take an iron supplement in the form of ferrous sulfate, 325mg daily for 4 weeks. 6. Colace, 100mg, b.i.d. until regular bowel movement. FOLLOW-UP: Please return to the clinic as scheduled for your first scheduled postop check. Prior to that point in time please call with any questions or concerns. Job [id number] CC: [facility] Amaury Gutiérrez D.O., Family Practice in [place], [place]
== END 2017-02-26 10:40 | disposition home or self-care (01) | DRG 470 ==
LOC: OR 02-24 08:11 → MS 02-24 15:41
PROVIDERS: ADMIT Orthopaedic Surgery; ATTEND Orthopaedic Surgery
PROC: 0SRB04A Replacement of Left Hip Joint with Ceramic on Polyethylene Synthetic Substitute, Uncemented, Open Approach (ICD-10-PCS; principal; 2017-02-24)
DX: M16.12 Unilateral primary osteoarthritis, left hip (principal); I10 Essential (primary) hypertension; R73.09 Other abnormal glucose; R11.2 Nausea with vomiting, unspecified; Z96.641 Presence of right artificial hip joint